=== PATIENT | male | born 1960 | race Caucasian/White ===

== ENCOUNTER 2017-05-26 07:50 | Inpatient (IN) | payer OTHER ==
[~2017-05-26] VITALS: Ht 175.3 cm; Wt 103.1 kg
[2017-05-26 09:08] LABS: BLOOD UREA NITROGEN 15 mg/dL (7-18)
[2017-05-26] MEDS ORDERED: ALLO100T30 PO (09:08)
[2017-05-26] MEDS ORDERED: LISI2.5T PO (09:08)
[2017-05-26] MEDS ORDERED: METF500T4 PO (09:08)
[2017-05-26] MEDS ORDERED: ATOR10TA9 PO (09:08)
[2017-05-26] MEDS ORDERED: OMNIPAQUE 350 MG/ML, 100ML BOTTLE ONE (09:38)
[2017-05-26] MEDS ORDERED: D5%-0.45% NACL 1,000 ML IV ONE (10:03)
[2017-05-26] MEDS ORDERED: SODIUM CHLORIDE 0.9% 1,000 ML IV ONE (10:10)
[2017-05-26] MEDS ORDERED: CEFOTETAN PMX 1GM/50ML 50 ML ONE (10:13)
[2017-05-26 10:18] VITALS: BP 144/80
[2017-05-26] MEDS ORDERED: CEFOTETAN PMX 1GM/50ML 50 ML IV ONE (10:30)
[2017-05-26] MEDS ORDERED: SODIUM CHLORIDE FLUSH 10ML SYR IVF PRN (10:30)
[2017-05-26] MEDS ORDERED: HYDROmorphone 1 MG/ML, 1ML IVPush PRN (10:30)
[2017-05-26] MEDS ORDERED: ONDANSETRON 2MG/ML, 2ML IVPush PRN ×2 (10:30→12:30)
[2017-05-26] MEDS ORDERED: BUPIVACAINE/PF-EPI 0.5% 1:200K ONE (10:34)
[2017-05-26] MEDS ORDERED: BUPIVACAINE/PF 0.5% ONE (10:54)
[2017-05-26] MEDS ORDERED: GLYCOPYRROLATE 0.2MG/1ML ONE (12:22)
[2017-05-26] MEDS ORDERED: ROCURONIUM 10 MG/ML ONE (12:22)
[2017-05-26] MEDS ORDERED: CEFAZOLIN 1,000 MG ONE (12:22)
[2017-05-26] MEDS ORDERED: NEOSTIGMINE 1 MG/ML, 10ML ONE (12:22)
[2017-05-26] MEDS ORDERED: PROPOFOL 10 MG/ML, 20ML ONE (12:22)
[2017-05-26] MEDS ORDERED: FENTANYL PF 100 MCG/2ML ONE ×2 (12:24→13:15)
[2017-05-26] MEDS ORDERED: MIDAZOLAM 1 MG/ML, 2ML ONE (12:24)
[2017-05-26] MEDS ORDERED: EPHEDRINE 50 MG/ML, 1ML IVPush PRN (12:30)
[2017-05-26] MEDS ORDERED: MEPERIDINE/PF 25MG/0.5ML IVPush PRN (12:30)
[2017-05-26] MEDS ORDERED: LABETALOL 5MG/ML, 20ML IV PRN (12:30)
[2017-05-26] MEDS ORDERED: ACETAMINOPHEN 325 MG TABLET PO PRN (12:30)
[2017-05-26] MEDS ORDERED: OXYcodone 5 MG/5 ML ORAL.SOL UDC PO PRN (12:30)
[2017-05-26] MEDS ORDERED: hydrALAzine 20 MG/ML, 1ML IV PRN (12:30)
[2017-05-26] MEDS ORDERED: ALBUTEROL SULFATE 2.5 MG/3 ML NPPB PRN (12:30)
[2017-05-26] MEDS ORDERED: HYDROmorphone 1 MG/ML, 1ML IV PRN (12:30)
[2017-05-26] MEDS ORDERED: METOPROLOL 1 MG/ML, 5ML IV PRN (12:30)
[2017-05-26] MEDS ORDERED: OXYcodone 5 MG/5 ML ORAL.SOL UDC ONE (13:16)
[2017-05-26] MEDS: FENTANYL PF 100 MCG/2ML IV PRN ×2 (13:17→13:26)
[2017-05-26] MEDS ORDERED: HYDROmorphone 2 MG/ML, 1ML ONE (13:34)
[2017-05-26] MEDS ORDERED: ACETAMINOPHEN 650 MG/20.3 ML UDC ONE (13:34)
== END 2017-05-26 15:15 | disposition home or self-care (01) | DRG 343 ==
LOC: ED 09:45 → EDIP 10:03
PROVIDERS: ADMIT Surgery; ATTEND Surgery
PROC: 0DTJ4ZZ Resection of Appendix, Percutaneous Endoscopic Approach (ICD-10-PCS; principal; 2017-05-26 12:15)
DX: K35.80 Unspecified acute appendicitis (principal); E78.5 Hyperlipidemia, unspecified; E11.9 Type 2 diabetes mellitus without complications; I10 Essential (primary) hypertension
CPT/HCPCS: 36415; 74177; 80048; 81003; 82040; 82962; 85025; 88304; 96365; J0690; J1170; J2250; J2704; J2710; J3010; J3490; Q9967; S0074